=== PATIENT | female | born 1950 | race American Indian/Alaskan Native ===

== ENCOUNTER 2017-05-02 08:05 | Outpatient (CLI) | payer MEDICARE ==
--- NOTE | 2017-05-02 08:33 | Mammography Report ---
BONE DEXA:05/02/17 08:05:00 CLINICAL: Postmenopausal. No comparison. TECHNIQUE: Two site bone DEXA performed on an Hologic scanner. FINDINGS: The average BMD of the lumbar spine L1-L4 is 0.922g/cm squared with a T-score of -2.1 and a Z-score of -0.1. The average BMD of the left hip is 0.868g/cm squared with a T-score of -1.0 and a Z-score of 0. IMPRESSION: 1. WHO classification: Osteopenia with increased fracture risk based on lumbar spine measurements. 2. WHO classification: Normal with average fracture risk based on left hip measurements. RECOMMENDATION: Clinical correlation and routine screening. DEFINITIONS: BMD = Bone Mineral Density T-score = BMD related to mean peak bone mass of young adult (mean expressed in Standard Deviation) Z-score = Age matched BMD expressed in SD World Health Organization (WHO) Diagnostic Criteria Normal T-score > -1 SD Osteopenia T-score between -1 and -2.4 SD Osteoporosis T-score -2.5 SD or below NOTE: BMD is not the only risk factor for fracture. One should also consider factors such as the patient's age, risk of falling, previous osteoporotic fracture, family history of osteoporotic fractures, current smoker, and low body weight. Z-scores are not calculated if >80 years of age.
== END 2017-05-02 08:06 | disposition home or self-care (01) ==
LOC: SPVWC 08:05
PROVIDERS: ATTEND Family Medicine
DX: M85.88 Other specified disorders of bone density and structure, other site (principal); Z78.0 Asymptomatic menopausal state
CPT/HCPCS: 77080

== ENCOUNTER 2021-05-06 09:24 | Outpatient (CLI) | payer MEDICARE ==
--- NOTE | 2021-05-06 11:35 | Mammography Report ---
DEXA BONE DENSITY SCAN INDICATION / CLINICAL INFORMATION: ASYMPTOMATIC AGE RELATED POSTMENOPAUSAL STATE. 70 years Female COMPARISON: 05/02/2017 LUMBAR SPINE, L1-L4: - Bone mineral density (BMD) = 0.973 g/cm2. - T-score = -1.6 - Z-score = 0.7 Change (%) since most recent prior (if available): 5.5% increase LEFT HIP, NECK : - Bone mineral density (BMD) = 0.771 g/cm2. - T-score = -1.3 - Z-score = 0.2 Change (%) since most recent prior (if available): 4.4% decrease IMPRESSION: 1. WHO Classification: Osteopenia. Fracture Risk: Increased. Note: 10-Year Fracture Risk (FRAX) not reported. This DEXA unit lacks FRAX functionality. BMD Reporting Guidelines (ISCD, 2015) BMD Reporting in Postmenopausal Women and in Men Age 50 and Older - T-scores are preferred. - The WHO densitometric classification is applicable. BMD Reporting in Females Prior to Menopause and in Males Younger Than Age 50 - Z-scores, not T-scores, are preferred. This is particularly important in children. - A Z-score of -2.0 or lower is defined as below the expected range for age, and a Z-score above -2.0 is within the expected range for age. - Osteoporosis cannot be diagnosed in men under age 50 on the basis of BMD alone. - The WHO diagnostic criteria may be applied to women in the menopausal transition. http://www.iscd.org/official-positions/0972-bpna-yrfupvgn-positions-adult/ Signer Name: Naresh Clancy MD Signed: 05/06/2021 11:30 AM Workstation Name: [id number]
== END 2021-05-06 09:25 | disposition home or self-care (01) ==
LOC: SPVWC 09:24
PROVIDERS: ATTEND Family Medicine
DX: Z13.820 Encounter for screening for osteoporosis (principal); M85.88 Other specified disorders of bone density and structure, other site; Z78.0 Asymptomatic menopausal state
CPT/HCPCS: 77080